=== PATIENT | female | born 2000 | race Caucasian/White ===

== ENCOUNTER 2020-02-15 12:13 | Emergency (ER) | payer OTHER, BC ==
[~2020-02-15] VITALS: Ht 167.7 cm; Wt 79.5 kg
[2020-02-15 12:16] VITALS: BP 131/82
--- OUTSIDE RECORDS SUMMARY | 2020-02-15 12:20 | XMS REPORT | Continuity of Care Document ---
Author Author [facility] Organization [employer] Address Unknown Phone Unavailable Allergies There is no data. Medications There is no data. Problems There is no data. Procedures There is no data. Results There is no data. Encounters ACCT No. Visit Date/Time Discharge Status Pt. Type Provider Facility Loc./Unit Complaint [id number] 02/14/2020 09:45:00 ACT Outpatient BESS KEENAN LAC [facility] [id number] 02/15/2020 12:14:[address] Emergency JOCE CERRATO APRN [facility] ER [facility]ST [facility]
[2020-02-15] MEDS ORDERED: HYDR-3870 PO (12:42)
--- NOTE | 2020-02-15 12:43 | ED Integumentary General ---
General Chief Complaint: Skin/Wound Problems Stated Complaint: CYST ON TAILBONE Source: patient Exam Limitations: no limitations History of Present Illness Date Seen by Provider: Feb 15, 2020 Time Seen by Provider: 12:38 Initial Comments To ER by private vehicle with reports of an "cyst" at the top of the cleft present for about 5 days, she was started on Augmentin 2 days ago by urgent care. The pain has increased today. She has similar episode a couple years ago that was resolved with antibiotics. Timing/Duration: constant Severity: moderate Associated Symptoms: denies symptoms Allergies and Home Medications Patient Home Medication List Home Medication List Reviewed: Yes Review of Systems Review of Systems Constitutional: see HPI; No chills, No fever EENTM: see HPI Respiratory: no symptoms reported Cardiovascular: no symptoms reported Genitourinary: no symptoms reported Musculoskeletal: no symptoms reported Skin: see HPI Psychiatric/Neurological: No Symptoms Reported Endocrine: No Symptoms Reported Hematologic/Lymphatic: No Symptoms Reported Past Lmveqvo-Acaxoz-Lhbxod Hx Patient Social History Recent Foreign Travel: No Contact w/Someone Who Travel: No Physical Exam Vital Signs Capillary Refill : General Appearance: WD/WN, no apparent distress HEENT: PERRL/EOMI, normal ENT inspection Neck: non-tender Respiratory: no respiratory distress, no accessory muscle use Gastrointestinal: normal bowel sounds, non tender Neurologic/Psychiatric: alert, normal mood/affect, oriented x 3 Skin: normal color, warm/dry Skin Problem Location: other (top of the gluteal cleft is a large fluctuant pilonidal abscess with erythema but no drainage. This was anesthetized with 3 L of 1% lidocaine without epinephrine. Incision made with an 11 blade scalpel. Large amount of purulent/clot appearing material was expressed. Cavity was then irrigated and packed with a little bit of quarter inch iodoform gauze.) Progress/Results/Core Measures Results/Orders My Orders Orders - JOCE CERRATO APRN Wound Culture (02/15/20 12:37) Departure Impression Primary Impression: Pilonidal abscess Disposition: 01 HOME, SELF-CARE Condition: Stable Departure-Patient Inst. Decision time for Depature: 12:40 Referrals: MARLEN VOGT BRETT D DO KIDO, TAKAAKI MD NO,LOCAL PHYSICIAN (PCP) Primary Care Physician Patient Instructions: Pilonidal Cyst, Skin Abscess Add. Discharge Instructions: 1. You can shower letting water run over this. The packing should be removed in about 24-36 hours, either we can do this here in the emergency room or you can do it at home by simply pulling on it. Change the overlying gauze to collect any drainage as needed. Return to ER for fevers chills or any worsening symptoms. These tend to be a recurrent issue so it would be a good idea to make an appointment with a surgeon for follow-up to discuss having this whole area excised. Continue your current antibiotics. All discharge instructions reviewed with patient and/or family. Voiced understanding. Work/School Note: Work Release Form Date Seen in the Emergency Department: Feb 15, 2020 Return to Work: Feb 17, 2020 JOCE CERRATO APRN Feb 15, 2020 12:43
== END 2020-02-15 12:58 | disposition home or self-care (01) ==
LOC: ER 12:14
DX: L05.01 Pilonidal cyst with abscess (principal)
CPT/HCPCS: 87070; 87077; 87186; 87205